=== PATIENT | male | born 1955 | race Caucasian/White ===

== ENCOUNTER → 2017-07-12 | Outpatient (CLI) | payer BC ==
[~2017-07-12] MED LIST: ALBUAER2 INH; FLUT0.15 NAE; GLUC250C PO; MULT-506 PO; NAPR-1169 PO; PYRI100T4 PO
--- NOTE | 2017-07-12 13:38 | DIAGNOSTIC IMAGING REPORT ---
CHEST 2 VIEWS ROUTINE HISTORY: 62 years-old Male ATYPICAL CHEST PAIN acute atypical chest pain COMPARISON: Chest radiograph 07/23/2015 TECHNIQUE: PA and lateral views of the chest FINDINGS: Cardiomediastinal and hilar silhouettes are within normal limits. No pneumothorax, pleural effusion, focal airspace consolidation or overt pulmonary edema. Bones of the chest are grossly intact. IMPRESSION: No acute cardiopulmonary process. The above report was generated using voice recognition software. It may contain grammatical, syntax or spelling errors. Electronically signed by: Bill Jackson M.D. 07/12/2017 1:36 PM Dictated Date/Time: 07/12/2017 1:35 PM
== END | disposition home or self-care (01) ==
LOC: C.RAD 12:10
DX: R07.89 Other chest pain (principal)